=== PATIENT | male | born 1965 | race Caucasian/White ===

== ENCOUNTER → 2016-03-10 | Outpatient (CLI) | payer OTHER | LOC: YCFC.O 15:20 | PROVIDERS: ATTEND Nurse Practitioner Family | DX: I63.30 Cerebral infarction due to thrombosis of unspecified cerebral artery (principal); E78.2 Mixed hyperlipidemia; I10 Essential (primary) hypertension ==

== ENCOUNTER → 2016-04-17 | Outpatient (CLI) | payer OTHER | END | disposition home or self-care (01) | LOC: LAB.O 14:23 | PROVIDERS: ATTEND Psychiatry & Neurology Neurology | DX: Z79.891 Long term (current) use of opiate analgesic (principal) ==

== ENCOUNTER → 2017-03-12 | Outpatient (CLI) | payer OTHER | END | disposition home or self-care (01) | LOC: YCFC.O 10:06 | DX: I10 Essential (primary) hypertension (principal) ==

== ENCOUNTER → 2017-05-22 | Outpatient (CLI) | payer OTHER | END | disposition home or self-care (01) | LOC: YCFC.O 13:04 | DX: R31.9 Hematuria, unspecified (principal) ==

== ENCOUNTER → 2017-08-24 | Outpatient (CLI) | payer OTHER | LOC: LAB.O 09:45 | PROVIDERS: ATTEND Student in an Organized Health Care Education/Training Program | DX: D41.4 Neoplasm of uncertain behavior of bladder (principal) ==

== ENCOUNTER → 2018-01-04 | Outpatient (CLI) | payer OTHER | LOC: LAB.O 14:58 | PROVIDERS: ATTEND Family Medicine | DX: R53.83 Other fatigue (principal); R35.1 Nocturia ==

== ENCOUNTER → 2018-01-22 | Outpatient (CLI) | payer OTHER | LOC: LAB.O 15:19 | PROVIDERS: ATTEND Family Medicine | DX: G40.909 Epilepsy, unspecified, not intractable, without status epilepticus (principal); I10 Essential (primary) hypertension; R56.9 Unspecified convulsions ==

== ENCOUNTER → 2018-02-06 | Outpatient (CLI) | payer OTHER ==
--- NOTE | 2018-02-06 15:25 | MRI ---
EXAM DESCRIPTION: Brain w/wo Contrast: Magnetic Resonance Imaging. CLINICAL HISTORY: 52 years Male ALTERED MENTAL STATUS. Neurological deficit and weakness. Previous left frontal craniotomy. Previous left CVA. COMPARISON: MR brain without contrast 07/10/2013. CT scan of the head 07/26/2015. TECHNIQUE: Multiplanar, high-field MRI, multiple conventional sequences, without and with gadolinium IV contrast. No adverse reactions. Multiple axial diffusion sequences. Diagnostic sensitivity of some segments is limited due to motion artifact. FINDINGS: 4.6 x 4.4 cm mass in the anterior medial right temporal lobe with moderate enhancement circumscribed margin displacement of the lateral right temporal lobe and effacement of the right temporal horn in the right sylvian fissure. The mass measures 2.8 cm craniocaudal with the base abutting the inferior dura/meninges. This dura/meninges may be abnormally enhancing. But more likely intra-axial than extra-axial. Mass extends to the right uncus and hippocampal region. White matter cerebral edema in the right temporal lobe extending superiorly into the right parietal white matter. There is also mass effect and left shift of the basal ganglia and cingulate gyrus.. Mass effect on the right midbrain in the right inferior cerebral peduncle. Left shift of the right lateral ventricle including the frontal horn and shift across the midline of the third ventricle. Prominence of the left lateral ventricle is chronic compared to prior CT scan as is confluent periventricular white matter hyperintense T2 and FLAIR signal in the left cerebral hemisphere extending to the subcortical white matter of the left frontal and parietal lobes. There is also gliosis and encephalomalacia in the left frontal lobe above the lateral ventricle from previous surgery; left superior frontoparietal craniotomy is noted. Normal contrast enhancement. Normal signal in the brainstem and cerebellar hemispheres. No hemorrhage, no cerebral edema, no mass-effect. Normal contrast enhancement. The mass demonstrates mild diffusion restriction. Concordance of the diffusion and non-diffusion sequences in the remainder of the brain, with no evidence of acute or subacute infarction. Remaining cortical sulci, ventricles, and other CSF spaces, and the subdural spaces demonstrate no effacement or displacement. In the left occipital extra-axial tissues, there is a 1 cm oval-shaped region of contrast enhancement which may involve the outer table of the skull bone versus the undersurface of the scalp. This is interpreted to be same location as a radiolucent lesion in the skull on the prior CT scan. Prominence of the junction of the anterior right transverse sinus and the proximal right jugular vein. Due to movement, it is difficult to tell if there is a filling defect in the venous lumen. Normal signal bilaterally in the mastoid air cells. No mass effect in the bilateral Cerebellopontine angles. Normal contrast enhancement. Pituitary gland occupies only the base of the sella, which contains mostly CSF. Normal contrast enhancement. Base of the cerebellar tonsils is at the level of the foramen magnum. Normal signal in the paranasal sinuses. The bony calvarium is intact. IMPRESSION: 1. Relatively heterogeneously enhancing mass in the right temporal lobe, 4.6 cm in greatest diameter, and abutting the inferior meninges and dura at the base of the temporal lobe and abutting the right tentorium over the posterior fossa. Mass effect on the right temporal lobe right parietal lobe and right basal ganglia with white matter edema. Also moderate mass effect on the right uncus and hypothalamus and hippocampus, right midbrain and right inferior cerebral peduncle, in the right lateral ventricle. Also left shift of the third ventricle. No subfalcine leftward herniation. No tonsillar herniation inferiorly. Differential includes primary low to mid grade gliomatous tumor or astrocytoma, aggressive meningioma, or metastatic lesion. No hemorrhage in the mass with minimal diffusion restriction. 2. Stable encephalomalacia and post surgical changes, and left posterior frontal bone craniotomy, and stable changes in the vertex of the left frontal lobe. 3. Dilation of the distal right transverse sinus at the junction with the proximal right jugular vein with no definite filling defect. This probably junction was also seen on the prior study. 4. No intra-axial or extra-axial hemorrhage. CRITICAL COMMUNICATION: The critical value was discussed directly by phone with Dr. Kalin Vernon at approximately 1500 hours, on February 06, 2018. Electronically signed by: Shabbri Cerrato MD 02/06/2018 3:24 PM [employer]TING MACHINE OPERATOR
== END ==
LOC: MRI 12:07
PROVIDERS: ATTEND Family Medicine
DX: R41.82 Altered mental status, unspecified (principal); G93.9 Disorder of brain, unspecified; G93.89 Other specified disorders of brain

== ENCOUNTER → 2018-04-05 | Outpatient (CLI) | payer OTHER | LOC: LAB.O 14:12 | PROVIDERS: ATTEND Neurological Surgery | DX: G93.9 Disorder of brain, unspecified (principal) ==

== ENCOUNTER → 2018-09-24 | Outpatient (CLI) | payer OTHER | LOC: YCFC.O 13:11 | PROVIDERS: ATTEND Family Medicine | DX: R31.9 Hematuria, unspecified (principal) ==

== ENCOUNTER → 2018-10-28 | Outpatient (CLI) | payer OTHER ==
--- NOTE | 2018-10-28 16:22 | MRI ---
EXAM DESCRIPTION: Brain w/wo Contrast CLINICAL HISTORY: MENINGIOMA COMPARISON: Previous MRI of the brain February 06, 2018 TECHNIQUE: MRI of the brain is performed according to our usual protocol including multiplanar multi sequence technique. Post gadolinium imaging is performed following IV administration of routine adult dose of gadolinium contrast. FINDINGS: Sagittal T1 images there is of encephalomalacia from old infarcts with thinning of the corpus callosum. A partially empty sella. Bilobed mass below the right temporal lobe 5.5 cm. Findings are consistent with residual meningioma partly resected since previous study February 06, 2018. Normal T1 appearance of the sean and medulla and upper cervical cord. Normal signal intensity within the clivus and calvarium. Axial T2 fat sat images reveal preservation of intracranial vascular flow voids. Normal ariza matter and white matter T2 signal intensity. Normal ventricles with normal gyral and sulcal fold pattern. The globes appear intact and symmetrical. No abnormal fluid signal in the paranasal sinuses, tympanic cavities or mastoid air cells. Axial flair images show encephalomalacia in the posterior left frontal lobe. High signal intensity chronic white matter disease in both cerebral hemispheres. Large left lateral ventricle compared to the right. Large sylvian fissures and sulci. Intermediate increased signal intensity in the tumor of the right middle cranial fossa. Diffusion weighted images are positive for ring like areas of restriction along the superior aspect of the tumor. Axial T1 precontrast images show normal ariza-white matter differentiation. No high signal intensity hemorrhagic lesion of the brain parenchyma. No subdural hematoma. Axial susceptibility weighted images are positive for focal signal loss consistent with hemosiderin staining in the region of partially resected tumor with signal loss in the basal ganglia and extensive artifacts in the region of previous calvarial surgery.. After IV contrast, residual tumor still enhances with evident extra-axial location and areas of internal cystic change or necrosis with peripheral enhancement. Previously the tumor measured 4.4 x 2.7 x 4.5 cm. The mass now measures 5.8 x 3.5 x 5.9 cm consistent with interval enlargement. Mild mass effect upon the right midbrain and right sean which is increased compared to previous study. Slight leftward midline shift 5 mm at the level of the septum lucidum. Surgical changes in the skull over the right temporal lobe. No enhancing nodularity of the meningeal surfaces or ventricular lining to suggest metastatic spread within the brain. Old lacunar infarcts in the basal ganglia and sean with extensive chronic microvascular ischemic disease in the cerebral white matter bilaterally. IMPRESSION: Interval increase in the size of the right subtemporal mass said to be a meningioma. Electronically signed by: Stephen Nixon MD 10/28/2018 4:21 PM CDT
== END ==
LOC: MRI 10-29 15:07
PROVIDERS: ATTEND Neurological Surgery
DX: D49.6 Neoplasm of unspecified behavior of brain (principal)

== ENCOUNTER → 2019-03-05 | Outpatient (CLI) | payer OTHER | LOC: LAB.O 15:28 | PROVIDERS: ATTEND Family Medicine | DX: I10 Essential (primary) hypertension (principal); G40.909 Epilepsy, unspecified, not intractable, without status epilepticus; R53.83 Other fatigue; E78.5 Hyperlipidemia, unspecified ==

== ENCOUNTER 2019-04-10 00:24 | Emergency (ER) | payer OTHER ==
[2019-04-10] MEDS ORDERED: IPRATROPIUM/ALBUTEROL 3 ML VIAL NEB ONE ×2 (00:39→03:38)
[2019-04-10] MEDS ORDERED: ONDANSETRON INJ 4 MG/2 ML VIAL IV ONE (00:40)
[2019-04-10] MEDS ORDERED: CEFEPIME 2 GM in SODIUM CHL 0.9% 50ML MIN-BAG+ 50 ML IVPB ONE (00:40)
[2019-04-10] MEDS ORDERED: CEFEPIME 2 GM VIAL ONE (00:42)
[2019-04-10] MEDS ORDERED: SODIUM CHL 0.9% 50ML MIN-BAG+ 50 ML IVPB ONE (00:43)
--- NOTE | 2019-04-10 01:13 | RAD ---
EXAM: X-ray acute abdomen series CLINICAL DATA: 53-year-old male with hypoxia, nausea and vomiting TECHNICAL DATA: Three x-ray images of the chest and abdomen were performed including a PA radiograph of the chest as well as supine and upright views of the abdomen. This study was performed on 04/10/2019 at 12:52 AM. Comparison: None. FINDINGS: The lungs are well expanded. The cardiac silhouette is within normal limits. There is no focal consolidation, pleural effusion or pneumothorax. The costophrenic sulci are clear. The bowel gas pattern is nonspecific and nonobstructive. There is no evidence of free air or significant air-fluid levels. No pathologic abdominal calcifications are identified. No focal soft tissue abnormalities are seen. IMPRESSION: 1. No evidence of acute intrathoracic disease.. 2. Nonspecific nonobstructive bowel gas pattern. Electronically signed by: Latrice Flores DO 04/10/2019 1:11 AM [facility]
[2019-04-10] MEDS ORDERED: SODIUM CHLORIDE 0.9% 1000ML 1,000 ML IVS ONE ×3 (01:45→05:24)
[2019-04-10] MEDS ORDERED: POTASSIUM CHLORIDE INJ 40 MEQ 40 MEQ in SODIUM CHLORIDE 0.9% 250ML 250 ML IVPB ONE (01:46)
[2019-04-10] MEDS ORDERED: POTASSIUM CHLORIDE 40mEq 20ML VIAL ONE (01:55)
[2019-04-10] MEDS ORDERED: SODIUM CHLORIDE 0.9% 250ML 250 ML ONE (01:55)
--- NOTE | 2019-04-10 02:49 | CT ---
CT ABDOMEN AND PELVIS WITH CONTRAST. CLINICAL HISTORY: Hypoxia with nausea and vomiting. Lactic acidosis. Elevated d-dimer. Brain tumor. COMPARISON: CT abdomen and pelvis 07/13/2011 TECHNIQUE: Axial CT imaging of the abdomen and pelvis performed with intravenous contrast. Reformatted coronal and sagittal images reviewed. A dose reduction technique was utilized with automated exposure control according to patient size. FINDINGS: Limited exam secondary to artifact from patient's upper extremities overlying the upper abdomen and motion. Clear lung bases. Heart is normal in size. Normal liver. Gallbladder has been resected. Normal spleen, pancreas, adrenal glands, kidneys. Normal aorta and inferior vena cava caliber. No adenopathy. Mesenteric vessels appear normal. Normal stomach and small bowel loops. Appendix is not visualized. Unremarkable colon. There is a large amount of fecal debris in the rectum which is dilated to 8.7 cm. There is no free air. No ascites. Bladder is decompressed around a Hernandez catheter. No pelvic free fluid or adenopathy. Normal prostate. There are bridging lower thoracic ligamentous ossifications and endplate osteophytes. Normal lumbar lordosis. Intact bony pelvis. Normal hips. IMPRESSION: 1. Rectal fecal impaction without obstruction. 2. No acute finding within the remaining abdomen or pelvis. 2. Postcholecystectomy. Presumed appendectomy. Electronically signed by: Skyla Lopez DO 04/10/2019 2:47 AM RECREATION THERAPY AIDE
--- NOTE | 2019-04-10 02:52 | CT ---
EXAM DESCRIPTION: CTA Chest CLINICAL HISTORY: hypoxia, elevated ddimer, brain tumor COMPARISON: None Available. TECHNIQUE: CTA of the chest obtained following the uncomplicated intravenous administration of 75 mL Optiray 320. 3-D/MIP reformatted images of the chest available for evaluation. FINDINGS: Chest: Pulmonary arteries: Contrast bolus is adequate.No filling defects identified in the pulmonary arteries to suggest pulmonary embolus. Suboptimal evaluation of the segmental and subsegmental pulmonary arterial branches due to significant respiratory motion artifact. Thyroid:No abnormalities of the visualized thyroid. Great Vessels:Great vessels have normal anatomic configuration. Thoracic Aorta:No abnormalities of the thoracic aorta identified. Heart:No cardiomegaly, significant pericardial effusion, or coronary artery atherosclerosis Lymph Nodes:No enlarged mediastinal lymph nodes identified. Esophagus:No abnormalities of the esophagus identified. Other:No additional findings. Lungs:No airspace opacities identified. Severe respiratory motion artifact. Pleura:No pleural effusion or pneumothorax. Trachea/Airways:No abnormalities of the visualized trachea or airways. Bones: Degenerative change of the spine. Upper Abdomen:Limited images of the upper abdomen demonstrate no definite abnormalities of visualized portions of the liver, pancreas, spleen, adrenal glands, or kidneys. Prior cholecystectomy. Please see CT of the abdomen and pelvis performed same day. IMPRESSION: 1. No central embolus identified. Suboptimal evaluation of the segmental and subsegmental pulmonary arterial branches due to severe respiratory motion artifact. This exam was performed according to our departmental dose-optimization program, which includes automated exposure control, adjustment of the mA and/or kV according to patient size and/or use of iterative reconstruction technique. Electronically signed by: Candelario Rasheed 04/10/2019 2:51 AM [facility]
[2019-04-10] MEDS ORDERED: ACETYLCYSTEIN 20 % 6,000 MG/30 ML VIAL NEB ONE (03:39)
--- NOTE | 2019-04-10 04:02 | CT ---
EXAM DESCRIPTION: CT of the head without contrast CLINICAL HISTORY: known brain tumor s/p rad, septicemia. COMPARISON: 10/28/2018 TECHNIQUE: Axial CT of the head obtained from the skull apex to the skull base without contrast. FINDINGS: No definite acute intracranial hemorrhage. Redemonstrated right middle cranial fossa heterogeneous hyperdense extra-axial mass measuring at least 4.9 x 3.6 x 4.2 cm this produces mass effect on the right temporal lobe with adjacent vasogenic edema. There is also significant midline shift measuring 1.0 cm from right to left. This is increased from the comparison study. The ventricular system and sulcal spaces are mildly enlarged compatible with mild cerebral atrophy. Focal areas of encephalomalacia in high left frontal lobe and left periventricular white matter compatible with remote ischemic change. Scattered areas of hypodensity throughout the supratentorial white matter are nonspecific and may be related to chronic small vessel ischemic change. Opacities in the paranasal sinuses. Mastoid air cells are well aerated. No skull fracture identified. Prior bilateral craniotomies. Atherosclerotic calcification of the intracranial internal carotid arteries. IMPRESSION: 1. Right middle cranial fossa extra-axial mass likely representing residual meningioma measuring at least 4.9 cm in greatest dimension. There is vasogenic edema of the adjacent right temporal, frontal, and parietal lobes that is slightly increased from the comparison study. This structure produces 1.0 cm right to left midline shift which is slightly increased from the comparison study. MRI with contrast would provide additional characterization. Urgent finding reported to Dr. DARA MORGAN at 04/10/2019 3:59 AM [employer] SUPERVISOR This exam was performed according to our departmental dose-optimization program, which includes automated exposure control, adjustment of the mA and/or kV according to patient size and/or use of iterative reconstruction technique. Electronically signed by: Candelario Rasheed 04/10/2019 4:01 AM [employer] SUPERVISOR
[2019-04-10] MEDS: SODIUM CHLORIDE 0.9% 1000ML 1,000 ML IVS ONE ×2 (04:28)
[2019-04-10] MEDS ORDERED: CLINDAMYCIN IV 600MG 600 MG in PREMIX BAG 1 BAG IVPB ONE (04:56)
[2019-04-10] MEDS ORDERED: methylPREDNISolone SODIUM SUC 125 MG/2 ML VIAL IV ONE (04:56)
[2019-04-10] MEDS ORDERED: CLINDAMYCIN IV 600MG 50 ML IVPB ONE (05:07)
[2019-04-10] MEDS ORDERED: NOREPINEPHRINE BITARTRATE 4 MG/4 ML VIAL IVPB ONE (05:49)
[2019-04-10] MEDS ORDERED: DEXTROSE 5% 250ML 250 ML ONE (05:49)
[2019-04-10] MEDS ORDERED: IBUPROFEN SUSP 100 MG/5 ML UD PO ONE (05:50)
--- NOTE | 2019-04-10 05:54 | ED.PDOC ---
History of Present Illness - General Chief Complaint: GI Problem Stated Complaint: N/V, fever, chest congestion Time Seen by Provider: 04/10/19 00:28 Source: patient Exam Limitations: no limitations - History of Present Illness Initial Comments: The patient is a 53-year-old male presents emergency room by EMS. The patient has a history of a right-sided meningioma that has been resected in the past. It apparently came back and he underwent 30 rounds of radiation. This was done under the supervision of Dr. Rasmussen, oncology at [facility]. This was completed in the middle of January. The patient has been at home under his family's care since that time. The patient is not really able to communicate. He is not able to do anything for himself at baseline. He requires feeding. Apparently for the last month he has been having coarse respirations. Today he started developing a fever, after which she threw up 2 times and started having more shortness of breath and weakness. No altered mental status. No evidence of any nuchal rigidity. No syncope. No evidence of any trauma. He did complete a course of antibiotics for urinary tract infection a couple weeks ago. On physical exam the patient is tachycardic in the 130s. Systolic blood pressures on average are in the 90s. Family does report that the patient has been having less oral intake of liquids. They have not been able to get them down him. Today was the first time he had had any vomiting. He does not appear to be in any pain. Oxygen saturations upon arrival were 83 to 85% on room air. No history of any chronic lung disease. No history of hypoxia. The patient's gag reflex is very minimal. He is alert and apparently at his normal level of responsiveness currently. In general he does not respond to verbal questions or commands. He is essentially nonverbal. Family recorded a temperature of 100.5 about an hour prior to bringing him up here. Upon arrival here he is technically afebrile but he had apparently received a dose of Tylenol or Motrin. As per vital signs the patient's fever did spike here back to 102. Timing/Duration: unsure Severity: severe Improving Factors: nothing Worsening Factors: nothing Associated Symptoms: cough, fever/chills, loss of appetite, malaise, nausea/vomiting, shortness of breath, weakness Allergies/Adverse Reactions: Allergies Penicillins Allergy (Verified 04/10/19 00:45) Home Medications: Ambulatory Orders Lisinopril 10 mg PO QAM 07/10/13 Pravastatin Sodium [Pravachol] 40 mg PO HS #0 tab 07/11/13 Aspirin-Dipyridamole [Aspirin/Dipyridamole 25-200 mg] 1 cap PO BID 04/10/19 Escitalopram [Lexapro] 10 mg PO QAM 04/10/19 Gnp One Daily Mens/Lycopene 1 tablet PO QAM 04/10/19 Lacosamide [Vimpat] 200 mg PO BID 04/10/19 Levetiracetam 750 mg PO BID 04/10/19 Review of Systems - Review of Systems Review of Systems: 04/10/19 05:59 Obviously most of the review of systems comes from the family. Patient is really unable to communicate them. Constitutional: States: fever, malaise, weakness - Chronic EENTM: States: no symptoms reported Respiratory: States: cough, short of breath - This afternoon mainly Cardiology: States: no symptoms reported Gastrointestinal/Abdominal: States: diarrhea - He has apparently had longstanding intermittent diarrhea. Genitourinary: States: see HPI Musculoskeletal: States: see HPI Skin: States: see HPI - He recently just healed a posterior skin store. Neurological: States: see HPI Endocrine: States: excessive sweating - Today mainly, other - Decreased liquid intake. All other Systems: No Change from Baseline Past Medical History (General) - Patient Medical History Hx Seizures: Yes Hx Stroke: Yes Hx Dementia: No Hx Asthma: No Hx of COPD: No Hx Cardiac Disorders: No Hx Congestive Heart Failure: No Hx Pacemaker: No Hx Hypertension: Yes Hx Thyroid Disease: No Hx Diabetes: No Hx Gastroesophageal Reflux: No Hx Renal Disease: No Hx Cancer: Yes - brain;requires 30 radiation treatments Hx of HIV: No Hx Hepatitis C: No Hx MRSA: No Surgical History: cholecystectomy, other - Vaccination History Hx Tetanus, Diphtheria Vaccination: No Hx Influenza Vaccination: No Hx Pneumococcal Vaccination: Yes - Social History Hx Tobacco Use: Yes Hx Chewing Tobacco Use: Yes Hx Alcohol Use: No Hx Substance Use: No Hx Substance Use Treatment: No Hx Depression: No Hx Physical Abuse: No Hx Emotional Abuse: No - Female History Patient : No Family Medical History - Family History Mother Living Status: Still Living Physical Exam - Physical Exam General Appearance: Alert, Frail, Ill Appearing Eye Exam: bilateral normal Ears, Nose, Throat: hearing grossly normal, normal pharynx - Poor gag reflex Neck: full range of motion Respiratory: no accessory muscle use, rhonchi - Coarse rhonchi throughout. Mild increased work of breathing. Cardiovascular/Chest: normal peripheral pulses, no edema, tachycardia Peripheral Pulses: radial,right: 2+, radial,left: 2+, dorsalis pedis,right: 2+, dorsalis pedis,left: 2+ Gastrointestinal/Abdominal: non tender, soft Rectal Exam: deferred Back Exam: no vertebral tenderness Extremity: non-tender, no pedal edema, no calf tenderness, normal capillary r efill, other - The patient seems to move his left leg better than his right. He is essentially nonverbal. Gag reflex is poor. Neurologic: alert, normal mood/affect - According to family., other - Chronic changes related to meningioma. Skin Exam: pallor Comments: Vital Signs - 24 hr 04/10/19 04/10/19 04/10/19 00:26 00:38 02:02 Temperature 98.8 F Pulse Rate 127 H 127 H Pulse Rate [ 125 H 112 H monitor] Respiratory 24 28 H 28 H Rate Blood Pressure 103/69 98/78 [Left Arm] O2 Sat by Pulse 82 L 93 L 94 L Oximetry 04/10/19 04/10/19 03:33 03:51 Temperature Pulse Rate 127 H 127 H Pulse Rate [ 112 H 122 H monitor] Respiratory 28 H 28 H Rate Blood Pressure 101/69 [Left Arm] O2 Sat by Pulse 92 L 95 Oximetry Progress - Progress Progress: 04/10/19 06:08 The patient is a 53-year-old male presenting to the emergency room secondary to vomiting, fever and increased shortness of breath today. The patient has had no further episodes of vomiting since he arrived here. It appears that the patient is septic. The source is most likely pulmonary. I believe the patient has been likely aspirating for some time now. He has a very poor gag reflex and poor control of his secretions. The patient is hypoxic and does require supplemental oxygen. He has had several breathing treatments here. The patient has been placed on cefepime and clindamycin. CT scan fails to show any large pneumonia which is certainly a positive. For the sepsis, he has received 2-1/2 L and continuing IV fluids so far. he is being started on low flow levophed and has received a dose of IV Solu-Medrol. Blood cultures have been taken. It has been difficult to obtain a adequate sputum culture secondary to lack of patient cooperation. He did have a moderate lactic acidosis lactic acid of 3.7. This will need to be rechecked upon arrival. His white blood cell count is markedly elevated at 18,000, as his baseline is around 7000. CT scans of the head, chest and abdomen failed to show any other source of infection. Urinalysis was clear. The patient was markedly dehydrated upon arrival. He does have mild acute renal insufficiency related to this. This goes along with the family's conveyance that he had been taking less liquid intake over the last week than he had prior. The patient will likely need a swallowing study and possibly a G-tube if that indicates a significant problem. This would certainly allow him to keep hydrated and reduce aspiration risk in the future. He has also received a dose of IV potassium for mild hypokalemia. We did attempt to get the patient back to [facility] where his oncologist is, however they report having no appropriate ICU level beds for the foreseeable future. I do not believe the brain tumor is the most immediate problem for the patient. The sepsis and aspiration bronchitis/ pneumonitis are the primary problems with this patient at this time. Certainly oncology and neurology consultation may be beneficial. Acceptance of transfer for higher level of care is greatly appreciated. Plan has been discussed with the family. Questions have been answered. Critical care time spent is 40 minutes excluding otherwise billable procedures. [email or web address] mena [phone] 04/10/19 06:19 There is going to be an additional 2-hour delay in transfer due to lack of EMS availability. - Results/Orders Results/Orders: Sinus tachycardia 141 bpm. Mild left axis deviation. No ST segment or T wave changes indicative of acute ischemia. Normal R wave progression. Right bundle branch block. Mildly prolonged QT interval. CT scan of the head shows new right-sided meningioma with increased edema when compared to scan from October 2018. No evidence of overt bleed. No mention of any herniation. The patient has undergone extensive radiation since the previous scan. See report for details. CT angiogram of the chest fails to show any large pneumonia or pulmonary embol us. No pneumothorax. No obvious vessel disease. See report for details. CT of abdomen pelvis shows no evidence of any obstruction or free air. No unusual mass. He does have a large amount of stool in the rectum. No ileus. No obvious diverticulitis. No obvious colitis. No obvious renal or bladder pathology. No obvious pancreatic acute pathology. See report for details. Laboratory Tests 04/10/19 04/10/19 04/10/19 00:36 00:36 00:36 WBC 18.1 H RBC 4.81 Hgb 15.0 Hct 45.0 MCV 93.6 MCH 31.2 H MCHC 33.3 RDW 14.3 Plt Count 353 MPV 9.5 Absolute Neuts (auto) 15.00 H Absolute Lymphs (auto) 1.90 Absolute Monos (auto) 0.90 H Absolute Eos (auto) 0.20 Absolute Basos (auto) 0.00 Neutrophils % 83.2 H Lymphocytes % 10.3 L Monocytes % 5.0 Eosinophils % 1.3 Basophils % 0.2 PT 10.7 INR 1.08 PTT (SP) 22.5 D-Dimer, Quantitative 673 H* Sodium 144 Potassium 3.2 L Chloride 113 H Carbon Dioxide 23 Anion Gap 11.2 L BUN 20 H Creatinine 1.29 BUN/Creatinine Ratio 15.5 Random Glucose 165 H Serum Osmolality 293.1 Lactic Acid Calcium 9.0 Magnesium 2.0 Total Bilirubin 0.8 AST 21 ALT 23 Alkaline Phosphatase 65 Creatine Kinase 41 CK-MB (CK-2) 0.7 CK-MB (CK-2) % Not Reportable Troponin I < 0.02 B-Natriuretic Peptide < 5.0 Serum Total Protein 6.9 Albumin 4.0 Globulin 2.9 Albumin/Globulin Ratio 1.4 Amylase 72 Lipase 50 Urine Color Urine Appearance Urine pH Ur Specific [place] Urine Protein Urine Glucose (UA) Urine Ketones Urine Blood Urine Nitrite Urine Bilirubin Urine Urobilinogen Ur Leukocyte Esterase Urine RBC Urine WBC Ur Epithelial Cells Amorphous Sediment Urine Bacteria Urine Mucus 04/10/19 04/10/19 01:15 01:42 WBC RBC Hgb Hct MCV MCH MCHC RDW Plt Count MPV Absolute Neuts (auto) Absolute Lymphs (auto) Absolute Monos (auto) Absolute Eos (auto) Absolute Basos (auto) Neutrophils % Lymphocytes % Monocytes % Eosinophils % Basophils % PT INR PTT (SP) D-Dimer, Quantitative Sodium Potassium Chloride Carbon Dioxide Anion Gap BUN Creatinine BUN/Creatinine Ratio Random Glucose Serum Osmolality Lactic Acid 3.7 H* Calcium Magnesium Total Bilirubin AST ALT Alkaline Phosphatase Creatine Kinase CK-MB (CK-2) CK-MB (CK-2) % Troponin I B-Natriuretic Peptide Serum Total Protein Albumin Globulin Albumin/Globulin Ratio Amylase Lipase Urine Color Yellow Urine Appearance Sl cloudy Urine pH 5.5 Ur Specific [place] >= 1.030 Urine Protein 30 Urine Glucose (UA) Negative Urine Ketones 40 H Urine Blood Negative Urine Nitrite Negative Urine Bilirubin Small H Urine Urobilinogen 0.2 Ur Leukocyte Esterase Negative Urine RBC 0 Urine WBC 0-1 Ur Epithelial Cells 0 Amorphous Sediment Trace Urine Bacteria Rare Urine Mucus Small Departure - Departure Clinical Impression: Dehydration, Lactic acidosis, Acute renal insufficiency, Meningioma, cerebral Sepsis Qualifiers: Sepsis type: sepsis due to unspecified organism Sepsis acute organ dysfunction status: with acute organ dysfunction Severe sepsis acute organ dysfunction type: acute renal failure Acute renal failure type: unspecified Severe sepsis shock status: with septic shock Qualified Code(s): A41.9 - Sepsis, unspecified organism; R65.21 - Severe sepsis with septic shock; N17.9 - Acute kidney failure, unspecified Aspiration into lower respiratory tract Qualifiers: Encounter type: initial encounter Qualified Code(s): T17.800A - Unspecified foreign body in other parts of respiratory tract causing asphyxiation, initial encounter Disposition: Transfer to Hospital Departure Forms: ED Discharge - Pt. Copy, Patient Portal Self Enrollment Referrals: Yovani Vernon MD [Primary Care Provider] - 1-2 Weeks Home Medications: Ambulatory Orders Lisinopril 10 mg PO QAM 07/10/13 Pravastatin Sodium [Pravachol] 40 mg PO HS #0 tab 07/11/13 Aspirin-Dipyridamole [Aspirin/Dipyridamole 25-200 mg] 1 cap PO BID 04/10/19 Escitalopram [Lexapro] 10 mg PO QAM 04/10/19 Gnp One Daily Mens/Lycopene 1 tablet PO QAM 04/10/19 Lacosamide [Vimpat] 200 mg PO BID 04/10/19 Levetiracetam 750 mg PO BID 04/10/19 Transfer to Outside Facility - Transfer Information Decision to Transfer Date: 04/10/19 Decision to Transfer Time: 06:20 Reason for Transfer: ICU Accepting Provider:: dr santana Accepting Facility: [facility]
[2019-04-10] MEDS ORDERED: NOREPINEPHRINE BITARTRATE 4 MG in DEXTROSE 5% 250ML 250 ML IVPB SCH (06:00)
[2019-04-10 07:49] VITALS: O2SAT 92
[2019-04-10 08:48] VITALS: BP 103/75; TEMP 99.3
== END 2019-04-10 08:32 | disposition short-term general hospital (02) ==
LOC: ER 00:24
DX: R65.21 Severe sepsis with septic shock (principal); N17.9 Acute kidney failure, unspecified; T17.800A Unspecified foreign body in other parts of respiratory tract causing asphyxiation, initial encounter; E86.0 Dehydration; E87.2 Acidosis; D32.0 Benign neoplasm of cerebral meninges; I45.10 Unspecified right bundle-branch block; I45.81 Long QT syndrome; R06.02 Shortness of breath; R00.0 Tachycardia, unspecified; R56.9 Unspecified convulsions; I10 Essential (primary) hypertension; Z86.73 Personal history of transient ischemic attack (TIA), and cerebral infarction without residual deficits; Z87.891 Personal history of nicotine dependence; Z79.82 Long term (current) use of aspirin; Z79.899 Other long term (current) drug therapy; Z88.0 Allergy status to penicillin; Z92.3 Personal history of irradiation; Z87.440 Personal history of urinary (tract) infections
CPT/HCPCS: 36600; 70450; 71275; 74019; 74177; 80053; 81001; 82150; 82550; 82553; 82803; 82805; 83605; 83690; 83735; 83880; 84484; 85025; 85379; 85610; 85730; 87040; 87502; 93005; 94640; J0692; J2405; J2930; J3480; J3490; J7030; J7050; J7060; J7620